=== PATIENT | female | born 1985 | race Caucasian/White ===

== ENCOUNTER 2019-01-17 14:25 | Emergency (ER) | payer MEDICAID, OTHER ==
[2019-01-17] MEDS: IBUPROFEN 800 MG TAB PO (15:29)
== END 2019-01-17 15:47 | disposition home or self-care (01) ==
LOC: FTE 14:25
DX: M54.2 Cervicalgia (principal)
CPT/HCPCS: 99283; Z7502

== ENCOUNTER 2019-06-17 13:18 | Emergency (ER) | payer MEDICAID ==
[2019-06-17] MEDS: KETOROLAC 30 MG INJ IM (15:28)
== END 2019-06-17 16:02 | disposition home or self-care (01) ==
LOC: FTE 13:18
DX: M54.9 Dorsalgia, unspecified (principal)
CPT/HCPCS: 81025; 96372; 99284-25